=== PATIENT | female | born 1955 | race Caucasian/White ===

== ENCOUNTER 2020-05-19 12:57 | Observation (INO) | payer MEDICARE ==
[~2020-05-19] VITALS: Ht 157.5 cm; Wt 60.3 kg
[~2020-05-19 12:57] MED LIST: BENTYL10 MG PO; TRAMADOL; Z.0.AMLODIPINE BESY1 PO; Z.0.BENTYL20 MG; Z.0.LEVAQUIN500 MG
[2020-05-19] MEDS ORDERED: SODIUM CHLORIDE 0.9% 1000ML 1,000 ML IV STA (13:20)
[2020-05-19] MEDS ORDERED: KETOROLAC TROMETHAMINE 30 MG/ML VIAL ONE (13:56)
[2020-05-19] MEDS ORDERED: ONDANSETRON HCL INJ 2MG/ML 2ML 2 MG/ML VIAL ONE (13:56)
[2020-05-19] MEDS ORDERED: SODIUM CHLORIDE 0.9% 1000ML 1,000 ML ONE (13:56)
[2020-05-19] MEDS ORDERED: DEXAMETHASONE SOD PHOS INJ 4 MG/ML VIAL ONE (13:56)
[2020-05-19] MEDS ORDERED: FAMOTIDINE 20 MG/2 ML VIAL IV ONE ×2 (13:57→14:00)
[2020-05-19] MEDS ORDERED: DEXAMETHASONE SOD PHOS 10 MG/1 ML VIAL IV ONE (14:00)
[2020-05-19] MEDS ORDERED: KETOROLAC TROMETHAMINE 30 MG/ML VIAL IV ONE (14:00)
[2020-05-19] MEDS ORDERED: ONDANSETRON HCL INJ 2MG/ML 2ML 2 MG/ML VIAL IV ONE (14:00)
[2020-05-19] MEDS ORDERED: PROMETHAZINE 25MG/ NS 50ML (IV) IV ONE (14:00)
[2020-05-19] MEDS ORDERED: PROMETHAZINE HCL (IM) 25 MG/ML VIAL IM ONE ×2 (14:02→17:23)
[2020-05-19] MEDS ORDERED: IOPAMIDOL 370 MG/ML 200 ML INFUS..BTL INJ ONE (14:10)
[2020-05-19] MEDS ORDERED: SODIUM CHLORIDE 0.9% 50ML 50 ML ONE (14:11)
[2020-05-19] MEDS ORDERED: MORPHINE SULFATE INJ 4 MG/ML INJ 1ML IV STA (14:57)
[2020-05-19] MEDS ORDERED: ZOLPIDEM TARTRATE 5 MG TAB PO PRN (16:45)
[2020-05-19] MEDS ORDERED: LEVOFLOXACIN 500MG/D5W 100ML 100 ML IV SCH (16:45)
[2020-05-19] MEDS ORDERED: DIPHENHYDRAMINE HCL INJ 50 MG/ML VIAL IV PRN (16:45)
[2020-05-19] MEDS ORDERED: MORPHINE SULFATE INJ 4 MG/ML INJ 1ML IV PRN (16:45)
[2020-05-19] MEDS: FAMOTIDINE 20 MG/2 ML VIAL IV SCH (16:52)
[2020-05-19] MEDS: PROMETHAZINE 25MG/ NS 50ML (IV) IV PRN ×2 (17:20→21:56)
[2020-05-19] MEDS ORDERED: HYDROCHLOROTH12.5 MG PO (17:21)
[2020-05-19] MEDS ORDERED: PROBIOTIC & AC1 EACH PO (17:21)
[2020-05-19] MEDS ORDERED: DIPHENHYDRAMINE HCL INJ 50 MG/ML VIAL ONE (17:23)
[2020-05-19] MEDS ORDERED: MORPHINE SULFATE INJ 4 MG/ML INJ 1ML ONE (17:24)
[2020-05-19] MEDS ORDERED: MAALOX/LIDOCAINE/BENADRYL/NYST 30 ML BTL PO PRN (17:45)
[2020-05-19 18:10] VITALS: BP 134/76
[2020-05-19 19:36] VITALS: BP 134/76
[2020-05-19 20:00] VITALS: BP 104/57
[2020-05-19] MEDS: HYDROMORPHONE 1MG/1ML INJ IV PRN (20:09)
[2020-05-19 21:00] VITALS: BP 104/57
[2020-05-19] MEDS ORDERED: LEVOFLOXACIN 500MG/D5W 100ML 100 ML IV ONE (21:00)
[2020-05-19] MEDS ORDERED: DICYCLOMINE HCL 20 MG TAB PO STA (22:18)
[2020-05-19] MEDS: METRONIDAZOLE 500MG/NS 100ML 100 ML IV SCH (22:33)
[2020-05-20] VITALS (8 sets, daily range): BP systolic 97–133; BP diastolic 61–88
[2020-05-20] MEDS: ONDANSETRON HCL INJ 2MG/ML 2ML 2 MG/ML VIAL IV PRN ×3 (00:49→20:29)
[2020-05-20] MEDS: HYDROMORPHONE 1MG/1ML INJ IV PRN ×5 (00:49→21:57)
[2020-05-20] MEDS: METRONIDAZOLE 500MG/NS 100ML 100 ML IV SCH ×3 (05:55→21:43)
[2020-05-20] MEDS ORDERED: METOCLOPRAMIDE HCL 10 MG/2ML VIAL IV SCH (06:00)
[2020-05-20] MEDS ORDERED: PROMETHAZINE 25MG/ NS 50ML (IV) IV PRN (06:45)
[2020-05-20 07:40] LABS: ANION GAP 17.1 mmol/L (8-16); BLOOD UREA NITROGEN 14 mg/dL (7-26); BUN/CREATININE RATIO 18 (6-25); CALCIUM 8.6 mg/dL (8.4-10.2); CARBON DIOXIDE 17 mmol/L (22-29); CHLORIDE 108 mmol/L (98-107); CREATININE, SERUM 0.78 mg/dL (0.57-1.11); EST GLOMERULAR FILTRATION RATE > 60 ML/MIN (60-); GLUCOSE 113 mg/dL (74-118); POTASSIUM 4.1 mmol/L (3.5-5.1); SODIUM 138 mmol/L (136-145)
[2020-05-20 08:23] LABS: BASOPHILS % 0.1 % (0.0-1.0); HEMATOCRIT 39.1 % (34.2-44.1); HEMOGLOBIN 12.5 g/dL (12.0-16.0); LYMPHOCYTES # (AUTO) 1.5 (1.0-3.2); LYMPHOCYTES % 14.5 % (18.0-39.1); MEAN CORPUSCULAR HEMOGLOBIN 29.7 pg (28-32); MEAN CORPUSCULAR VOLUME 92.9 fL (81-99); MONOCYTES # (AUTO) 0.5 (0.2-0.8); MONOCYTES % 4.6 % (4.4-11.3); NEUTROPHILS # (AUTO) 8.4 (2.1-6.9); NEUTROPHILS % 80.5 % (38.7-80.0); PLATELET COUNT 233 x10e3/uL (140-360); RED BLOOD COUNT 4.21 x10e6/uL (3.6-5.1); RED CELL DISTRIBUTION WIDTH 13.9 % (11.7-14.4)
[2020-05-20] MEDS: DICYCLOMINE HCL 20 MG TAB PO SCH ×4 (08:24→20:29)
[2020-05-20] MEDS: FAMOTIDINE 20 MG/2 ML VIAL IV SCH ×2 (08:24→16:39)
[2020-05-20] MEDS ORDERED: POLYETHYLENE GLYCOL 3350 17 GM PACK PO PRN (08:30)
[2020-05-20] MEDS ORDERED: DOCUSATE SODIUM 100 MG CAP PO PRN (08:30)
[2020-05-20] MEDS ORDERED: ACETAMINOPHEN 325 MG TAB PO PRN (08:30)
[2020-05-20] MEDS ORDERED: SIMETHICONE 80 MG CHEW PO PRN (08:30)
[2020-05-20] MEDS ORDERED: CIPROFLOXACIN 400 MG/D5W 200ML 200 ML IV SCH (08:30)
[2020-05-20] MEDS ORDERED: BENZONATATE 100 MG CAP PO PRN (08:30)
[2020-05-20] MEDS ORDERED: MELATONIN 5 MG TABLET PO PRN (08:30)
[2020-05-20] MEDS ORDERED: POTASSIUM CHLORIDE 20 MEQ TAB CR PO PRN (08:30)
[2020-05-20] MEDS ORDERED: HYDRALAZINE HCL 20 MG/ML VIAL IV PRN (08:30)
[2020-05-20] MEDS ORDERED: DEXTROSE 50% SYRINGE 50 ML IV PRN (08:30)
[2020-05-20] MEDS ORDERED: DIPHENHYDRAMINE HCL 25 MG CAP PO PRN (08:30)
[2020-05-20] MEDS ORDERED: AMLODIPINE BESYLATE 10 MG TAB PO SCH (09:00)
[2020-05-20] MEDS: CIPROFLOXACIN 400 MG/D5W 200ML 200 ML IV SCH ×2 (10:30→22:48)
[2020-05-20] MEDS ORDERED: KETOROLAC TROMETHAMINE 30 MG/ML VIAL IV PRN (13:15)
[2020-05-20] MEDS: SODIUM CHLORIDE 0.9% 1000ML 1,000 ML IV SCH ×2 (13:16→23:35)
[2020-05-20] MEDS ORDERED: ENOXAPARIN SOD INJ 40 MG/0.4 ML SYR SC SCH (17:00)
[2020-05-21] VITALS: BP 111/70
[2020-05-21 04:00] VITALS: BP 135/92
[2020-05-21] MEDS: HYDROMORPHONE 1MG/1ML INJ IV PRN (04:16)
[2020-05-21] MEDS: METRONIDAZOLE 500MG/NS 100ML 100 ML IV SCH (05:50)
[2020-05-21] MEDS ORDERED: ONDANSETRON HCL INJ 2MG/ML 2ML 2 MG/ML VIAL IV SCH (06:00)
[2020-05-21 06:22] LABS: BASOPHILS # (AUTO) 0.1 (0.0-0.1); BASOPHILS % 0.9 % (0.0-1.0); EOSINOPHILS # (AUTO) 0.1 (0.0-0.4); EOSINOPHILS % 0.6 % (0.0-6.0); HEMATOCRIT 34.7 % (34.2-44.1); HEMOGLOBIN 11.5 g/dL (12.0-16.0); LYMPHOCYTES # (AUTO) 4.4 (1.0-3.2); MEAN CORPUSCULAR HEMOGLOBIN 29.2 pg (28-32); MEAN CORPUSCULAR HGB CONC 33.1 g/dL (31-35); MEAN CORPUSCULAR VOLUME 88.1 fL (81-99); MONOCYTES # (AUTO) 0.7 (0.2-0.8); MONOCYTES % 7.8 % (4.4-11.3); NEUTROPHILS # (AUTO) 3.6 (2.1-6.9); NEUTROPHILS % 40.4 % (38.7-80.0); PLATELET COUNT 221 x10e3/uL (140-360); RED BLOOD COUNT 3.94 x10e6/uL (3.6-5.1); RED CELL DISTRIBUTION WIDTH 13.9 % (11.7-14.4)
[2020-05-21 06:46] LABS: ANION GAP 15.3 mmol/L (8-16); BLOOD UREA NITROGEN 12 mg/dL (7-26); BUN/CREATININE RATIO 15 (6-25); CALCIUM 8.2 mg/dL (8.4-10.2); CARBON DIOXIDE 21 mmol/L (22-29); CHLORIDE 108 mmol/L (98-107); CREATININE, SERUM 0.81 mg/dL (0.57-1.11); EST GLOMERULAR FILTRATION RATE > 60 ML/MIN (60-); GLUCOSE 95 mg/dL (74-118); MAGNESIUM 1.8 MG/DL (1.3-2.1); PHOSPHORUS 3.4 MG/DL (2.3-4.7); POTASSIUM 3.3 mmol/L (3.5-5.1); SODIUM 141 mmol/L (136-145)
[2020-05-21] MEDS ORDERED: PANTOPRAZOLE SOD 40 MG TABEC PO SCH (07:30)
[2020-05-21 08:30] VITALS: BP 136/82
[2020-05-21] MEDS: FAMOTIDINE 20 MG/2 ML VIAL IV SCH (08:39)
[2020-05-21] MEDS: DICYCLOMINE HCL 20 MG TAB PO SCH (08:39)
[2020-05-21] MEDS: SODIUM CHLORIDE 0.9% 1000ML 1,000 ML IV SCH (08:40)
[2020-05-21] MEDS: ONDANSETRON HCL INJ 2MG/ML 2ML 2 MG/ML VIAL IV PRN (08:40)
[2020-05-21 08:53] VITALS: BP 136/82
== END 2020-05-21 10:59 | disposition left against medical advice (07) ==
LOC: FSED 13:19 → ERHOLD 16:48 → MED/SURG3 18:11
PROVIDERS: ADMIT Internal Medicine; ATTEND Internal Medicine
DX: R10.9 Unspecified abdominal pain (principal); K51.90 Ulcerative colitis, unspecified, without complications; E86.0 Dehydration; I10 Essential (primary) hypertension; Z20.822 Contact with and (suspected) exposure to COVID-19; Z76.5 Malingerer [conscious simulation]
CPT/HCPCS: 36415 ×2; 74177; 80048 ×2; 80053; 81003; 83735; 84100; 85025 ×3; 85651; 86140; 87400; 99284; G0378 ×3; J0744 ×2; J1100 ×2; J1170 ×3; J1200; J1650; J1885 ×2; J1956; J2270; J2405 ×3; J2550; J2765; J7030 ×3; Q9967; S0164; U0002

== ENCOUNTER 2022-02-24 11:00 | Emergency (ER) | payer OTHER ==
[~2022-02-24] VITALS: Ht 157.5 cm; Wt 60.3 kg
[~2022-02-24 11:00] MED LIST changes: +HYDROCHLOROTH12.5 MG PO; +PROBIOTIC & AC1 EACH PO
[2022-02-24] MEDS ORDERED: KETOROLAC TROMETHAMINE 30 MG/ML VIAL IM STA (11:24)
[2022-02-24] MEDS ORDERED: HYDROCODONE/APAP 5MG-325MG TAB PO ONE (12:45)
[2022-02-24] MEDS ORDERED: DOCUSATE SODIU100 MG PO (13:30)
[2022-02-24] MEDS ORDERED: HYDROCODON-ACE1 EA11 PO (13:30)
[2022-02-24 13:49] VITALS: BP 137/81
== END 2022-02-24 13:52 | disposition home or self-care (01) ==
LOC: ER 11:05
DX: S93.491A Sprain of other ligament of right ankle, initial encounter (principal); Y93.01 Activity, walking, marching and hiking; Y93.89 Activity, other specified; Y92.89 Other specified places as the place of occurrence of the external cause
CPT/HCPCS: 70450; 72125; 73562; 73610; 99284; J1885

== ENCOUNTER 2022-09-23 19:10 | Emergency (ER) | payer OTHER, MEDICARE ==
[~2022-09-23] VITALS: Ht 157.5 cm; Wt 60.3 kg
[~2022-09-23 19:10] MED LIST changes: +DOCUSATE SODIU100 MG PO; +HYDROCODON-ACE1 EA11 PO
[2022-09-23] MEDS ORDERED: Morphine 4mg INJECTION 4 MG/ML INJ IV STA (19:44)
[2022-09-23] MEDS ORDERED: SODIUM CHLORIDE 0.9% 1000ML 1,000 ML IV STA (19:44)
[2022-09-23] MEDS ORDERED: ONDANSETRON HCL INJ 2MG/ML 2ML 2 MG/ML VIAL IV STA (19:44)
[2022-09-23] MEDS ORDERED: KETOROLAC TROMETHAMINE 30 MG/ML VIAL IV STA (19:54)
[2022-09-23] MEDS ORDERED: IOPAMIDOL 370 MG/ML 100 ML INFUS..BTL INJ ONE (19:58)
[2022-09-23] MEDS ORDERED: SODIUM CHLORIDE 0.9% 1000ML 1,000 ML ONE (20:02)
[2022-09-23] MEDS ORDERED: ONDANSETRON HCL INJ 2MG/ML 2ML 2 MG/ML VIAL ONE (20:02)
[2022-09-23] MEDS ORDERED: HYDROMORPHONE 1MG/1ML INJ IV STA (22:13)
[2022-09-23] MEDS ORDERED: PREDNISONE20 MG PO (22:15)
[2022-09-23] MEDS ORDERED: DIPHENHYDRAMINE HCL INJ 50 MG/ML VIAL IV STA (22:21)
[2022-09-23 22:45] VITALS: BP 158/74; PULSE 82; RESP 18; TEMP 98.5; O2SAT 97
[2022-09-24] MEDS ORDERED: Morphine 4mg INJECTION 4 MG/ML INJ IV STA (00:15)
== END 2022-09-23 22:45 | disposition home or self-care (01) ==
LOC: FSED 19:23
DX: T63.461A Toxic effect of venom of wasps, accidental (unintentional), initial encounter (principal); Y92.89 Other specified places as the place of occurrence of the external cause; R10.33 Periumbilical pain; I10 Essential (primary) hypertension; E78.5 Hyperlipidemia, unspecified; Z87.19 Personal history of other diseases of the digestive system
CPT/HCPCS: 74177; 99284; J1170; J1200; J1885; J2270; J2405; J7030; Q9967

== ENCOUNTER 2023-06-28 09:32 | Emergency (ER) | payer MEDICARE ==
[~2023-06-28] VITALS: Ht 157.5 cm; Wt 59.0 kg
[~2023-06-28 09:32] MED LIST changes: +PREDNISONE20 MG PO
[2023-06-28] MEDS: KETOROLAC TROMETHAMINE 30 MG/ML VIAL IV STA (10:36)
[2023-06-28] MEDS ORDERED: KETOROLAC TROMETHAMINE 30 MG/ML VIAL ONE (10:37)
[2023-06-28] MEDS ORDERED: IOPAMIDOL 370 MG/ML 100 ML INFUS..BTL INJ ONE (11:00)
[2023-06-28] MEDS ORDERED: PREDNISONE20 MG PO (12:45)
[2023-06-28] MEDS ORDERED: METRONIDAZOLE 500 MG TAB PO ONE (12:45)
[2023-06-28] MEDS ORDERED: CIPRO500 MG PO (12:46)
[2023-06-28] MEDS ORDERED: METRONIDAZOLE500 MG PO (12:47)
[2023-06-28] MEDS ORDERED: CIPROFLOXACIN 500 MG TAB ONE (13:15)
[2023-06-28] MEDS ORDERED: PREDNISONE 20 MG TAB ONE (13:15)
[2023-06-28] MEDS ORDERED: ACETAMINOPHEN 325 MG TAB ONE (13:16)
[2023-06-28] MEDS: ACETAMINOPHEN 325 MG TAB PO ONE (13:18)
[2023-06-28] MEDS: PREDNISONE 20 MG TAB PO ONE (13:19)
[2023-06-28] MEDS: CIPROFLOXACIN 500 MG TAB PO SCH (13:19)
[2023-06-28] MEDS: METRONIDAZOLE 500MG/NS 100ML 100 ML IV ONE (13:20)
[2023-06-28] MEDS: ONDANSETRON HCL INJ 2MG/ML 2ML 2 MG/ML VIAL IV STA ×2 (13:22→14:20)
[2023-06-28] MEDS ORDERED: ONDANSETRON HCL INJ 2MG/ML 2ML 2 MG/ML VIAL ONE (13:24)
[2023-06-28] MEDS ORDERED: TRAMADOL HCL 50 MG TAB ONE (13:30)
[2023-06-28] MEDS: TRAMADOL HCL 50 MG TAB PO ONE (13:31)
[2023-06-28 14:51] VITALS: BP 138/71; PULSE 82; RESP 18; TEMP 97.7; O2SAT 100
[2023-06-28] MEDS ORDERED: CIPROFLOXACIN 500 MG TAB PO SCH (17:00)
== END 2023-06-28 14:20 | disposition home or self-care (01) ==
LOC: FSED 09:55
DX: R10.30 Lower abdominal pain, unspecified (principal); K52.9 Noninfective gastroenteritis and colitis, unspecified; K50.90 Crohn's disease, unspecified, without complications; N39.0 Urinary tract infection, site not specified; I10 Essential (primary) hypertension; E78.5 Hyperlipidemia, unspecified; M43.22 Fusion of spine, cervical region; F17.210 Nicotine dependence, cigarettes, uncomplicated
CPT/HCPCS: 74177; 80053; 80076; 83880; 84484; 85025; 99284; J1885; J2405; J7512; Q9967